=== PATIENT | male | born 1995 | race Caucasian/White ===

== ENCOUNTER 2018-09-17 10:19 | Emergency (ER) | payer OTHER ==
[~2018-09-17] VITALS: Ht 182.9 cm; Wt 84.1 kg
[2018-09-17] MEDS ORDERED: ONDANSETRON 4 MG TAB (S0181) PO ONE (10:45)
[2018-09-17] MEDS ORDERED: ONDANSETRON 4 MG ORAL DISINTEGRATING TAB (Q0162 PER 1MG) PO ONE (11:15)
[2018-09-17] MEDS ORDERED: METOCLOPRAMIDE INJ 10MG/2ML VIAL (J2765) IV ONE (11:30)
[2018-09-17] MEDS ORDERED: NS 1,000 ML IV ONE ×2 (11:30→18:15)
[2018-09-17] MEDS ORDERED: KETOROLAC 30 MG/ML VIAL (J1885) IV ONE ×2 (11:30→15:30)
[2018-09-17 11:46] LABS: BASO # 0.1 10^3/uL (0.0-0.2); BASO % 0.5 % (0.0-1.0); EOS % 0.1 % (0.0-3.0); HEMATOCRIT 47.1 % (42.0-52.0); HEMOGLOBIN 16.3 g/dl (13.5-17.5); LYMPH # 2.8 10^3/uL (1.5-6.5); LYMPH % 17.2 % (24.0-44.0); MEAN CORPUSCULAR HEMOGLOBIN 28.7 pg (27.0-33.0); MEAN CORPUSCULAR HGB CONC 34.6 g/dl (32.0-36.5); MEAN CORPUSCULAR VOLUME 82.9 fl (80.0-96.0); MONO # 1.4 10^3/uL (0.0-0.8); MONO % 8.7 % (0.0-5.0); PLATELET COUNT, AUTOMATED 339 10^3/uL (150-450); RED BLOOD COUNT 5.68 10^6/uL (4.30-6.10); WHITE BLOOD COUNT 16.5 10^3/uL (4.0-10.0)
[2018-09-17 12:00] LABS: ALBUMIN 4.6 GM/DL (3.2-5.2); ALT/SGPT 44 U/L (12-78); AMYLASE 96 U/L (25-115); BILIRUBIN,DIRECT 0.3 MG/DL (0.0-0.2); BILIRUBIN,TOTAL 1.4 MG/DL (0.2-1.0); BLOOD UREA NITROGEN 17 MG/DL (7-18); CALCIUM LEVEL 9.5 MG/DL (8.5-10.1); CARBON DIOXIDE LEVEL 22 MEQ/L (21-32); CHLORIDE LEVEL 103 MEQ/L (98-107); CREATININE FOR GFR 1.44 MG/DL (0.70-1.30); GLOMERULAR FILTRATION RATE > 60.0 (>60); GLUCOSE, FASTING 110 MG/DL (70-100); LIPASE 248 U/L (73-393); POTASSIUM SERUM 3.8 MEQ/L (3.5-5.1); SODIUM LEVEL 139 MEQ/L (136-145); TOTAL PROTEIN 8.1 GM/DL (6.4-8.2)
[2018-09-17] MEDS ORDERED: ISOVUE-370 76% 100ML VIAL (Q9967) As Ordered ONE ×2 (13:14→14:49)
[2018-09-17] MEDS: NS 1,000 ML IV SCH (13:15)
[2018-09-17 13:22] LABS: MONO SCRN NEGATIVE (NEGATIVE)
[2018-09-17] MEDS: GASTROGRAFIN SOLUTION 30ML (Q9963) PO SCH ×2 (13:33→13:35)
[2018-09-17 13:54] LABS: INFLUENZA A AMPLIFICATION NEGATIVE (NEGATIVE); INFLUENZA B AMPLIFICATION NEGATIVE (NEGATIVE)
[2018-09-17] MEDS ORDERED: ONDANSETRON 4MG/2ML VIAL (J2405) IV ONE (15:30)
[2018-09-17] MEDS ORDERED: GI COCKTAIL 50ML BTL(HYOSCYAMINE/MAALOX/LIDOCAINE VISCOUS)(1:3:1) PO ONE ×2 (18:15→20:00)
[2018-09-17] MEDS ORDERED: ZOFR8TAB24 PO (19:49)
[2018-09-17 20:11] VITALS: BP 115/56
--- NOTE | 2018-09-18 07:27 | REP ---
CT ABDOMEN AND PELVIS WITH CONTRAST: HISTORY: Mid abdominal pain. CONTRAST: Isovue 370, 100 mL. A 4 mm cyst is present in the right lobe of the liver. The gallbladder, pancreas, spleen, adrenal glands, and kidneys are normal in appearance. There is no mass, adenopathy, or free fluid. A small amount of hyperdense material is present in the stomach. The visualized lungs are clear. The prostate gland and urinary bladder are normal in appearance. There is no fracture or subluxation. IMPRESSION: 4 mm liver cyst. Electronically Signed by Ashish Ibrahim MD 09/18/2018 07:58 A
[2018-09-18] MEDS ORDERED: ONDA8TAB7 PO (19:10)
== END 2018-09-17 20:20 | disposition home or self-care (01) ==
LOC: M ED 10:19 → M ED INP 19:24 → UNDOADMOB 19:24
DX: K52.9 Noninfective gastroenteritis and colitis, unspecified (principal); R11.2 Nausea with vomiting, unspecified; R10.84 Generalized abdominal pain; K76.89 Other specified diseases of liver
CPT/HCPCS: 74177; 80048; 80076; 81001; 82150; 83605; 83690; 85025; 86308; 87502; 87880; 96374; 96375; 96376; 99284; J1885; J2405; J2765; Q0162; Q9963; Q9967

== ENCOUNTER 2018-09-18 12:59 | Inpatient (IN) | payer OTHER ==
[~2018-09-18] VITALS: Ht 182.9 cm; Wt 82.8 kg
[~2018-09-18 12:59] MED LIST: ZOFR8TAB24 PO
[2018-09-18] MEDS ORDERED: PROMETHAZINE INJ 25 MG/ML VIAL (J2550) IV ONE ×2 (14:30→19:00)
[2018-09-18] MEDS ORDERED: KETOROLAC 30 MG/ML VIAL (J1885) IV ONE (14:30)
[2018-09-18] MEDS ORDERED: NS 1,000 ML IV ONE (14:30)
[2018-09-18 14:52] LABS: BASO # 0.1 10^3/uL (0.0-0.2); BASO % 0.9 % (0.0-1.0); HEMOGLOBIN 14.9 g/dl (13.5-17.5); LYMPH # 1.3 10^3/uL (1.5-6.5); LYMPH % 13.1 % (24.0-44.0); MEAN CORPUSCULAR HEMOGLOBIN 28.4 pg (27.0-33.0); MEAN CORPUSCULAR HGB CONC 33.9 g/dl (32.0-36.5); MONO # 0.6 10^3/uL (0.0-0.8); MONO % 5.5 % (0.0-5.0); NEUTROPHILS # 8.2 10^3/uL (1.8-7.7); NEUTROPHILS % 80.2 % (36.0-66.0); PLATELET COUNT, AUTOMATED 264 10^3/uL (150-450); RED BLOOD COUNT 5.24 10^6/uL (4.30-6.10); WHITE BLOOD COUNT 10.2 10^3/uL (4.0-10.0)
[2018-09-18 15:24] LABS: ALBUMIN 4.3 GM/DL (3.2-5.2); ALT/SGPT 39 U/L (12-78); BILIRUBIN,DIRECT 0.3 MG/DL (0.0-0.2); BILIRUBIN,TOTAL 1.3 MG/DL (0.2-1.0); BLOOD UREA NITROGEN 12 MG/DL (7-18); CALCIUM LEVEL 8.9 MG/DL (8.5-10.1); CARBON DIOXIDE LEVEL 20 MEQ/L (21-32); CHLORIDE LEVEL 105 MEQ/L (98-107); CREATININE FOR GFR 1.31 MG/DL (0.70-1.30); GLOMERULAR FILTRATION RATE > 60.0 (>60); GLUCOSE, FASTING 92 MG/DL (70-100); LIPASE 119 U/L (73-393); POTASSIUM SERUM 3.9 MEQ/L (3.5-5.1); SODIUM LEVEL 140 MEQ/L (136-145); TOTAL PROTEIN 7.2 GM/DL (6.4-8.2)
[2018-09-18] MEDS: GASTROGRAFIN SOLUTION 30ML PO SCH ×2 (15:27→15:59)
[2018-09-18] MEDS ORDERED: ISOVUE-370 76% 100ML VIAL (Q9967) As Ordered ONE (17:03)
[2018-09-18] MEDS ORDERED: NS 1,000 ML IV SCH (18:51)
[2018-09-18] MEDS ORDERED: ONDA8TAB7 PO (19:10)
[2018-09-18] MEDS ORDERED: ACETAMINOPHEN TAB 650MG DOSE (2X325MG) PO ONE (19:15)
[2018-09-18] MEDS ORDERED: KCL 20MEQ IN 0.45NS 1000ML 1,000 ML IV SCH (20:00)
--- NOTE | 2018-09-18 21:35 | HPE ---
DATE OF ADMISSION: 09/18/2018 ATTENDING PHYSICIAN: Tyler palacio PRIMARY CARE PROVIDER: [facility] HISTORY: Khoa Perez is a 23-year-old from [place] who was admitted with intractable vomiting. He has been having vomiting and diarrhea all day. Unable to retain oral fluids in the emergency room, and they felt he needed to be admitted. He is being put on observation bed. Currently he had the same thing happen 5 years ago. He was admitted to observation bed overnight. Did not require any other interventions. In the emergency room he has had CT of abdomen and pelvis, which was apparently done yesterday as well, and it shows no change from yesterday's. Essentially normal. He has a [address] His [address] abdomen and pelvis has been twice now in 2 days. His lab work showed no elevation of lipase or amylase. Probably Gilbert's syndrome with a mildly elevated bilirubin and absence of any other liver function abnormalities. Urinalysis showed ketones. White count was 60,000 yesterday. It is down to 10 now. He had a streptococcus screen done yesterday that was negative. He has not had a gastrointestinal (GI) panel done yet. PAST MEDICAL HISTORY: Benign. I do not have any dictations back yet, but it looks like he was actually put on an observation status last night. Do not know what became of that. There is no discharge order. SOCIAL HISTORY: Nonsmoker. Denies alcohol. Denies marijuana use. MEDICATIONS: None. ALLERGIES: None. REVIEW OF SYSTEMS: No hematemesis, rectal bleeding, trouble swallowing. PHYSICAL EXAMINATION: 123/58, pulse 60, respirations 18, 97% oxygen saturation. GENERAL APPEARANCE: He is vomiting repetitive with dry heaves. Vomitus is quite scant. Pupils equal, round, reactive to light. Tympanic membranes (TMs) normal. Dry mucous membranes. Pharynx benign. NECK: No masses. LUNGS: Clear. HEART: Without murmur. ABDOMEN: Soft diffusely, mildly tender. No guarding, rebound, or referred pain. No costovertebral angle (CVA) tenderness. No peripheral edema. LABORATORY DATA: White count 10.2, hemoglobin 14.9, platelets are unremarkable. Sodium 140, potassium 3.9, BUN 12, creatinine 1.3. Bilirubin 1.3. Liver functions normal. Lipase normal. IMPRESSION: Intractable nausea, vomiting, and history of diarrhea. PLAN: Suspect viral etiology. He will be admitted for observation. Will hydrate him with IV fluids, check the GI panel. Antiemetics have been ordered. Hopefully he will be stable enough for discharge tomorrow.
[2018-09-18] MEDS: ONDANSETRON 4MG/2ML VIAL (J2405) IV PRN (22:52)
[2018-09-18] MEDS ORDERED: CALCIUM CARBONATE 500 MG CHEW U/D PO ONE (23:00)
[2018-09-18 23:04] VITALS: BP 165/91
[2018-09-18] MEDS ORDERED: IBUPROFEN 400 MG TAB PO PRN (23:15)
[2018-09-19] VITALS: BP 140/60
[2018-09-19] MEDS: KCL 20MEQ IN 0.45NS 1000ML 1,000 ML IV SCH ×2 (00:59→07:18)
[2018-09-19] MEDS: GI COCKTAIL 50ML BTL(HYOSCYAMINE/MAALOX/LIDOCAINE VISCOUS)(1:3:1) PO PRN ×2 (00:59→10:14)
[2018-09-19] MEDS: ONDANSETRON 4MG/2ML VIAL (J2405) IV PRN (07:15)
[2018-09-19 07:24] LABS: HEMATOCRIT 41.9 % (42.0-52.0); HEMOGLOBIN 14.2 g/dl (13.5-17.5); MEAN CORPUSCULAR HEMOGLOBIN 28.6 pg (27.0-33.0); MEAN CORPUSCULAR HGB CONC 33.9 g/dl (32.0-36.5); MEAN CORPUSCULAR VOLUME 84.5 fl (80.0-96.0); PLATELET COUNT, AUTOMATED 236 10^3/uL (150-450); RED BLOOD COUNT 4.96 10^6/uL (4.30-6.10); WHITE BLOOD COUNT 14.9 10^3/uL (4.0-10.0)
--- NOTE | 2018-09-19 07:25 | REP ---
REASON: Generalized abdominal pain and vomiting. COMPARISON: 09/17/2018 which was normal with exception of a small hepatic cyst. CONTRAST: 100 mL of Isovue 370. The lung bases are clear and unchanged. Minimal subsegmental atelectatic change is seen. The liver, gallbladder, spleen, pancreas, adrenal glands, and kidneys are essentially unchanged and again seen to be within normal limits. There is an incidental tiny focal filling defect in the posterior segment of the right lobe of the liver most consistent with a tiny hepatic cyst. There is vicarious excretion of the contrast material by the gallbladder causing a layering effect. This is within normal limits. There is no free fluid or free air. The bowel loops and mesenteries are within normal limits. CT PELVIS: The bowel loops and their mesenteries are within normal limits and essentially unchanged. There is no mass or adenopathy. There is no free fluid or free air. Bone window technique throughout the examination shows the osseous structures to be stable and intact. IMPRESSION: No significant change from the prior exam. No evidence of acute intra-abdominal or intrapelvic disease. Electronically Signed by Mehrdad Jimenez DO 09/19/2018 04:29 P
[2018-09-19 08:01] LABS: ALBUMIN 3.6 GM/DL (3.2-5.2); ALT/SGPT 36 U/L (12-78); BLOOD UREA NITROGEN 10 MG/DL (7-18); CALCIUM LEVEL 8.7 MG/DL (8.5-10.1); CARBON DIOXIDE LEVEL 26 MEQ/L (21-32); CHLORIDE LEVEL 105 MEQ/L (98-107); CREATININE FOR GFR 1.11 MG/DL (0.70-1.30); GLOMERULAR FILTRATION RATE > 60.0 (>60); GLUCOSE, FASTING 90 MG/DL (70-100); POTASSIUM SERUM 4.2 MEQ/L (3.5-5.1); SODIUM LEVEL 138 MEQ/L (136-145); TOTAL PROTEIN 6.6 GM/DL (6.4-8.2)
[2018-09-19 08:30] VITALS: BP 143/96
[2018-09-19] MEDS: NS 1,000 ML IV SCH ×2 (09:02→22:40)
[2018-09-19] MEDS: PANTOPRAZOLE 40MG INJ (PROTONIX) (C9113) IV SCH ×2 (09:02→22:40)
[2018-09-19 10:39] LABS: LIPASE 73 U/L (73-393)
--- NOTE | 2018-09-19 13:47 | IPNPDOC ---
Date Seen The patient was seen on 09/19/18. Progress Note SUBJECTIVE: Patient was seen and examined this morning. He continues to have persistent nausea and vomiting and has remained NPO. He has been receiving Zofran. He states that he continues to have abdominal pain with his nausea vomiting. The patient has been febrile overnight. He denies diarrhea or constipation. OBJECTIVE PHYSICAL EXAMINATION: VITAL SIGNS: Please see below. GENERAL: Awake alert and oriented. He is in no acute distress although he is ill appearing. HEENT: Atraumatic, normocephalic. Eyes are nonicteric. Trachea is midline. Mucous membranes are dry CARDIOVASCULAR: Normal S1, S2. Regular rate and rhythm. No clicks, rubs, or murmurs RESPIRATORY: Clear vesicular lung sounds bilaterally. No wheezes, rhonci, or rales ABDOMINAL: Soft, nondistended. Slight tenderness to palpation of RLQ and LLQ. No rebound tenderness or guarding EXTREMITIES: No edema. Full and equal pulses in upper and lower extremities bilaterally NEUROLOGICAL: No focal neurological deficits noted on examination PSYCHOLOGICAL: Mood and affect appear appropriate LABORATORY DATA, IMAGING STUDIES, MICROBIOLOGY: Please see below. ASSESSMENT AND PLAN: Patient is a 23 year old male who presented to the [facility] ER for a 4 day complaint of abdominal pain with intractable vomiting. The patient has received a CT abdomen as an outpatient and in the ER which has been negative for any acute pathology. He has received laboratory studies demonstrating a leukocytosis. Patient has been receiving Zofran for nausea vomiting and a GI cocktail PROBLEMS: 1. Intractable Nause vomiting 2/2 acute gastritis -Patient currently complains of abdominal pain accompanied by nausea and vomiting. He denies any diarrhea. He has been febrile -Will continue with IV hydration -Monitor electrolytes and replace PRN -GI panel pending -Blood cultures pending -Continue Zofran 8 mg Q4HP, Protonix 40 mg BID, GI cocktail Q6HP, Reglan 10mg Q6HP 2. Leukocytosis -Likely 2/2 acute gastritis. Will continue to monitor I saw and evaluated the patient. I agree with the findings and plan of care as documented in the resident's note A-FIB/CHADSVASC A-FIB History Current/History of A-Fib/PAF?: No VS, I&O, 24H, Fishbone Vital Signs/I&O Vital Signs Date Time Temp Pulse Resp B/P (MAP) Pulse Ox O2 Delivery O2 Flow Rate FiO2 09/19/18 08:30 99.6 62 16 143/96 (112) 99 09/18/18 13:00 Room Air I&O- Last 24 Hours up to 6 AM 09/19/18 05:59 Intake Total 1400 ml Balance 1400 ml Laboratory Data 24H LABS Laboratory Tests 2 09/18/18 14:45: Immature Granulocyte % (Auto) 0.3, White Blood Count 10.2H, Red Blood Count 5.24, Hemoglobin 14.9, Hematocrit 44.0, Mean Corpuscular Volume 84.0, Mean Corpuscular Hemoglobin 28.4, Mean Corpuscular Hemoglobin Concent 33.9, Red Cell Distribution Width 13.2, Platelet Count 264, Neutrophils (%) (Auto) 80.2H, Lymphocytes (%) (Auto) 13.1L, Monocytes (%) (Auto) 5.5H, Eosinophils (%) (Auto) 0.0, Basophils (%) (Auto) 0.9, Neutrophils # (Auto) 8.2H, Lymphocytes # (Auto) 1.3L, Monocytes # (Auto) 0.6, Eosinophils # (Auto) 0.0, Basophils # (Auto) 0.1, Nucleated Red Blood Cells % (auto) 0.0, Anion Gap 15, Glomerular Filtration Rate > 60.0, Calcium Level 8.9, Aspartate Amino Transf (AST/SGOT) 21, Alanine Aminotransferase (ALT/SGPT) 39, Alkaline Phosphatase 28L, Total Bilirubin 1.3H, Direct Bilirubin 0.3H, Total Protein 7.2, Albumin 4.3, Albumin/Globulin Ratio 1.48, Lipase 119 09/19/18 07:01: Nucleated Red Blood Cells % (auto) 0.0, Anion Gap 7L, Glomerular Filtration Rate > 60.0, Calcium Level 8.7, Aspartate Amino Transf (AST/SGOT) 15, Alanine Aminotr ansferase (ALT/SGPT) 36, Alkaline Phosphatase 28L, Total Bilirubin 1.0, Total Protein 6.6, Albumin 3.6, Albumin/Globulin Ratio 1.20, Lipase 73, Blood Urea Nitrogen 10, Creatinine 1.11, Sodium Level 138, Potassium Level 4.2, Chloride Level 105, Carbon Dioxide Level 26 CBC/BMP Laboratory Tests 09/18/18 14:45 Red Blood Count 5.24, Mean Corpuscular Volume 84.0, Mean Corpuscular Hemoglobin 28.4, Mean Corpuscular Hemoglobin Concent 33.9, Red Cell Distribution Width 13.2, Neutrophils (%) (Auto) 80.2 H, Lymphocytes (%) (Auto) 13.1 L, Monocytes (%) (Auto) 5.5 H, Eosinophils (%) (Auto) 0.0, Basophils (%) (Auto) 0.9, Neutrophils # (Auto) 8.2 H, Lymphocytes # (Auto) 1.3 L, Monocytes # (Auto) 0.6, Eosinophils # (Auto) 0.0, Basophils # (Auto) 0.1 09/19/18 07:01 Red Blood Count 4.96, Mean Corpuscular Volume 84.5, Mean Corpuscular Hemoglobin 28.6, Mean Corpuscular Hemoglobin Concent 33.9, Red Cell Distribution Width 13.3, Calcium Level 8.7, Aspartate Amino Transf (AST/SGOT) 15, Alanine Aminotransferase (ALT/SGPT) 36, Alkaline Phosphatase 28 L, Total Bilirubin 1.0, Total Protein 6.6, Albumin 3.6 Microbiology Microbiology 09/19/18 Blood Culture, Received Pending 09/19/18 Blood Culture, Received Pending 09/19/18 Gastrointestinal Tract Panel (PCR), Received Pending RE LOUIS DO Sep 19, 2018 13:47 SKY JOSHI MD September 23, 2018 16:09
[2018-09-19 16:15] VITALS: BP 117/64
[2018-09-19] MEDS: METOCLOPRAMIDE INJ 10MG/2ML VIAL (J2765) IV PRN (16:42)
[2018-09-20] VITALS: BP 135/62
[2018-09-20 08:00] VITALS: BP 120/56
[2018-09-20] MEDS: PANTOPRAZOLE 40MG INJ (PROTONIX) (C9113) IV SCH ×2 (08:41→21:45)
[2018-09-20 08:48] LABS: HEMATOCRIT 42.2 % (42.0-52.0); HEMOGLOBIN 13.7 g/dl (13.5-17.5); MEAN CORPUSCULAR HEMOGLOBIN 28.1 pg (27.0-33.0); MEAN CORPUSCULAR HGB CONC 32.5 g/dl (32.0-36.5); MEAN CORPUSCULAR VOLUME 86.7 fl (80.0-96.0); PLATELET COUNT, AUTOMATED 202 10^3/uL (150-450); RED BLOOD COUNT 4.87 10^6/uL (4.30-6.10)
[2018-09-20 09:22] LABS: ALBUMIN 3.3 GM/DL (3.2-5.2); ALT/SGPT 29 U/L (12-78); BILIRUBIN,TOTAL 0.8 MG/DL (0.2-1.0); BLOOD UREA NITROGEN 10 MG/DL (7-18); CALCIUM LEVEL 8.3 MG/DL (8.5-10.1); CARBON DIOXIDE LEVEL 28 MEQ/L (21-32); CHLORIDE LEVEL 107 MEQ/L (98-107); CREATININE FOR GFR 1.33 MG/DL (0.70-1.30); GLOMERULAR FILTRATION RATE > 60.0 (>60); GLUCOSE, FASTING 99 MG/DL (70-100); POTASSIUM SERUM 3.7 MEQ/L (3.5-5.1); SODIUM LEVEL 140 MEQ/L (136-145); TOTAL PROTEIN 5.9 GM/DL (6.4-8.2)
[2018-09-20] MEDS: NS 1,000 ML IV SCH ×2 (10:21→22:48)
[2018-09-20] MEDS: ONDANSETRON 4MG/2ML VIAL (J2405) IV PRN ×4 (10:21→22:48)
--- NOTE | 2018-09-20 11:04 | IPNPDOC ---
Date Seen The patient was seen on 09/20/18. Progress Note SUBJECTIVE: Patient was seen and examined this morning. He currently states that he is feeling better compared to yesterday. He still admits to some continued abdominal discomfort. He denies any more vomiting however, does have some nausea. His diet was advanced to clear liquids overnight night. He seems to have tolerated this well. He states that he has had a bowel movement. No adverse events were reported overnight OBJECTIVE PHYSICAL EXAMINATION: VITAL SIGNS: Please see below. GENERAL: Awake, alert, and oriented. Appears in no acute distress. Laying in bed comfortably. HEENT: Atraumatic normocephalic. Eyes are nonicteric. Trachea is midline. Mucous membranes are pink and moist CARDIOVASCULAR: Normal S1, S2. Regular rate and rhythm. No clicks rubs or murmurs noted on examination. RESPIRATORY: Clear vesicular lung sounds bilaterally with good respiratory effort. No wheezes, rhonci, or rales. ABDOMINAL: Soft, nondistended. Nontender to palpation of all 4 quadrants. No rebound tenderness or guarding. Positive bowel sounds throughout EXTREMITIES: No edema. Full and equal pulses in bilateral upper and lower extremities NEUROLOGICAL: No focal neurological deficits noted on examination PSYCHOLOGICAL: Mood and affect appear appropriate for situation LABORATORY DATA, IMAGING STUDIES, MICROBIOLOGY: Please see below. ASSESSMENT AND PLAN: Patient is a 23 year old male who presented to the [facility] ER for a 4 day complaint of abdominal pain with intractable vomiting. The patient h as received a CT abdomen as an outpatient and in the ER which has been negative for any acute pathology. He has received laboratory studies demonstrating a leukocytosis. Patient has been receiving Zofran for nausea vomiting and a GI cocktail PROBLEMS: 1. Intractable Nause vomiting 2/2 acute gastritis -Abdominal pain, nausea, and vomiting is resolving. Patient has been advanced to a full liquids diet. He has been tolerating well. If he continues to tolerate clear liquids then will advance as tolerated to a BRAT diet -Will continue with IV hydration. Will D/C once patient is fully tolerating PO -Monitor electrolytes and replace PRN -GI panel was negative -Blood cultures negative -Continue Zofran 8 mg Q4HP, Protonix 40 mg BID, GI cocktail Q6HP, Reglan 10mg Q6HP -Patient will likely benefit from PO protonix for 6 weeks on D/C with follow-up with PCP 2. Leukocytosis -Likely 2/2 acute gastritis. -Has resolved A-FIB/CHADSVASC A-FIB History Current/History of A-Fib/PAF?: No VS, I&O, 24H, Fishbone Vital Signs/I&O Vital Signs Date Time Temp Pulse Resp B/P (MAP) Pulse Ox O2 Delivery O2 Flow Rate FiO2 09/20/18 08:00 98.7 58 18 120/56 (77) 98 09/18/18 13:00 Room Air I&O- Last 24 Hours up to 6 AM 09/20/18 06:00 Intake Total 1375 ml Output Total 1090 ml Balance 285 ml Laboratory Data 24H LABS Laboratory Tests 2 09/20/18 08:11: Nucleated Red Blood Cells % (auto) 0.0, Anion Gap 5L, Glomerular Filtration Rate > 60.0, Blood Urea Nitrogen 10, Creatinine 1.33H, Sodium Level 140, Potassium Level 3.7, Chloride Level 107, Carbon Dioxide Level 28, Calcium Level 8.3L, As partate Amino Transf (AST/SGOT) 11, Alanine Aminotransferase (ALT/SGPT) 29, Alkaline Phosphatase 26L, Total Bilirubin 0.8, Total Protein 5.9L, Albumin 3.3, Albumin/Globulin Ratio 1.27 CBC/BMP Laboratory Tests 09/20/18 08:11 Red Blood Count 4.87, Mean Corpuscular Volume 86.7, Mean Corpuscular Hemoglobin 28.1, Mean Corpuscular Hemoglobin Concent 32.5, Red Cell Distribution Width 13.2, Calcium Level 8.3 L, Aspartate Amino Transf (AST/SGOT) 11, Alanine Aminotransferase (ALT/SGPT) 29, Alkaline Phosphatase 26 L, Total Bilirubin 0.8, Total Protein 5.9 L, Albumin 3.3 Microbiology Microbiology 09/19/18 Blood Culture - Preliminary, Resulted No growth after 24 hours . All specim... 09/19/18 Blood Culture - Preliminary, Resulted No growth after 24 hours . All specim... 09/19/18 Gastrointestinal Tract Panel (PCR) - Final, Complete GME ATTESTATION GME ATTESTATION My faculty preceptor for this patient encounter was physically present during the encounter and was fully available. All aspects of the patient interview, examination, medical decision making process, and medical care plan development were reviewed and approved by the faculty preceptor. The faculty preceptor is aware and concurs with the plan as stated in the body of this note and will attest to such by his/her cosignature. ATTENDING NOTE I saw and evaluated the patient. I agree with the findings and plan of care as documented in the resident's note RE LOUIS DO September 20, 2018 11:04 SKY JOSHI MD September 23, 2018 16:10
[2018-09-20] MEDS: METOCLOPRAMIDE INJ 10MG/2ML VIAL (J2765) IV PRN ×2 (11:20→17:26)
[2018-09-20] MEDS: GI COCKTAIL 50ML BTL(HYOSCYAMINE/MAALOX/LIDOCAINE VISCOUS)(1:3:1) PO PRN (11:20)
[2018-09-20 16:00] VITALS: BP 133/96
[2018-09-20 20:00] VITALS: BP 152/87
[2018-09-21] VITALS (9 sets, daily range): BP systolic 122–139; BP diastolic 58–67
[2018-09-21 06:56] LABS: HEMATOCRIT 41.5 % (42.0-52.0); HEMOGLOBIN 14.1 g/dl (13.5-17.5); MEAN CORPUSCULAR HEMOGLOBIN 28.7 pg (27.0-33.0); MEAN CORPUSCULAR VOLUME 84.3 fl (80.0-96.0); PLATELET COUNT, AUTOMATED 230 10^3/uL (150-450); RED BLOOD COUNT 4.92 10^6/uL (4.30-6.10); WHITE BLOOD COUNT 11.8 10^3/uL (4.0-10.0)
[2018-09-21 07:24] LABS: ALBUMIN 3.5 GM/DL (3.2-5.2); ALT/SGPT 30 U/L (12-78); BILIRUBIN,TOTAL 0.9 MG/DL (0.2-1.0); BLOOD UREA NITROGEN 10 MG/DL (7-18); CALCIUM LEVEL 8.4 MG/DL (8.5-10.1); CARBON DIOXIDE LEVEL 27 MEQ/L (21-32); CHLORIDE LEVEL 106 MEQ/L (98-107); CREATININE FOR GFR 1.34 MG/DL (0.70-1.30); GLOMERULAR FILTRATION RATE > 60.0 (>60); GLUCOSE, FASTING 85 MG/DL (70-100); POTASSIUM SERUM 3.7 MEQ/L (3.5-5.1); SODIUM LEVEL 140 MEQ/L (136-145); TOTAL PROTEIN 6.1 GM/DL (6.4-8.2)
[2018-09-21] MEDS: PANTOPRAZOLE 40MG INJ (PROTONIX) (C9113) IV SCH ×2 (08:39→21:29)
--- NOTE | 2018-09-21 09:32 | CR ---
DATE OF CONSULTATION: 09/20/2018 23-year white male admitted to [facility] from [place] for apparent intractable bouts of nausea, vomiting and diarrhea for approximately 1-2 days. The patient has been unable to maintain liquids. He has had a previous bout of this approximately 5-6 years ago, was admitted overnight, no interventions were performed at that time and nausea and vomiting resolved spontaneously. He presented to the emergency room for these symptoms and apparently abdominal CT was normal. He has Gilbert's syndrome, which causes a mild elevation in his bilirubin with normal liver functions. The patient had a white count of 10.2. The patient's urinalysis showed some ketones and a strep screen which was negative. PAST MEDICAL HISTORY: Is benign. SOCIAL HISTORY: Cigarettes, alcohol, drugs negative. MEDICATIONS: None. ALLERGIES: None. REVIEW OF SYSTEMS: Noncontributory to the above problem. PHYSICAL EXAMINATION: Generally he is a well-developed, well-nourished white male in no obvious acute distress. Appears stated age. Chest is clear to auscultation. Cardiovascular exam showed a regular rhythm. No murmurs or gallops. Normal physiological split S1 to S2. Abdomen was soft, nontender. No masses, guarding, rebound, hepatosplenomegaly and bowel sounds were positive. LABORATORY STUDIES: On previous admission to the ER on 09/17/2018 showed white count was 16,500. Hemoglobin and hematocrit was normal. The patient's chemistry on 09/17/2018 was normal except for a mild elevation of his bilirubin. Serology studies were negative for fluid and mono. Imaging studies performed on 09/17/2016 was completely normal and the patient was sent home. He then returned 24 hours later with similar symptoms and repeat abdominal CT was negative. ANALYSIS: Episodic bouts of nausea, vomiting, unknown etiology at the present time. The patient is a healthy male who has no apparent significant pathology. 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 Plan will be to perform upper endoscopy to rule out any anatomic abnormalities that might cause his vomiting. PLAN: 1. Set up upper endoscopy. 2. Maintain IV fluids.
--- NOTE | 2018-09-21 11:05 | IPNPDOC ---
Date Seen The patient was seen on 09/21/18. Progress Note SUBJECTIVE: Patient was seen and examined this morning. The patient tolerated clear liquids yesterday however when he was advanced to ice cream he was unable to tolerate and had abdominal pain with emesis. The patient is currently NPO for an EGD to be performed today. Patient denies any fevers or chills. He has remained afebrile overnight. There were no adverse events reported overnight OBJECTIVE PHYSICAL EXAMINATION: VITAL SIGNS: Please see below. GENERAL: Awake, alert and oriented. Appears in no acute distress. Lying in bed on cell phone HEENT: Atrumatic normocephalic. Eyes are nonicteric. Trachea is midline. Mucous membranes are pink and moist CARDIOVASCULAR: Normal S1, S2. Regular rate and rhythm. No clicks rubs or murmurs noted on examination RESPIRATORY: Clear vesicular breath sounds bilaterally with good respiratory effort. No wheezes, rhonci, or rales ABDOMINAL: Soft, nondistended, nontender to palpation throughout. No rebound tenderness or guarding. Positive bowel sounds throughout EXTREMITIES: No edema. Full and equal pulses in upper and lower extremities bilaterally NEUROLOGICAL: No focal neurological deficits PSYCHOLOGICAL: Mood and affect appear appropriate LABORATORY DATA, IMAGING STUDIES, MICROBIOLOGY: Please see below. ASSESSMENT AND PLAN: Patient is a 23 year old male who presented to the [facility] ER for a 4 day complaint of abdominal pain with intractable vomiting. The patient has received a CT abdomen as an outpatient and in the ER which has been negative for any acute pathology. He has received laboratory studies demonstrating a leukocytosis. Patient has been receiving Zofran for nausea vomiting and a GI cocktail PROBLEMS: 1. Intractable Nause vomiting 2/2 acute gastritis -Patient had diet advanced yesterday. He had eaten ice cream and developed abdominal pain and emesis. Patient remains afebrile. He was made NPO again and the patients nausea and abdominal pain subsided. -Gastroenterology consult has been placed. Patient will have an EGD performed to assess for anatomical causes of his vomiting -Patient will be continued on IV hydration -Blood cultures remain negative -Zofran 8mg Q4HP, Protonix 40mg BID, GI cocktail Q6HP, Reglan 10mg Q6HP 2. Leukocytosis -Likely 2/2 acute gastritis. -Has resolved A-FIB/CHADSVASC A-FIB History Current/History of A-Fib/PAF?: No VS, I&O, 24H, Nate Vital Signs/I&O Vital Signs Date Time Temp Pulse Resp B/P (MAP) Pulse Ox O2 Delivery O2 Flow Rate FiO2 09/21/18 08:00 98.3 65 18 139/63 (88) 98 09/18/18 13:00 Room Air I&O- Last 24 Hours up to 6 AM 09/21/18 06:00 Intake Total 2420 ml Output Total 850 ml Balance 1570 ml Laboratory Data 24H LABS Laboratory Tests 2 09/21/18 06:43: Nucleated Red Blood Cells % (auto) 0.0, Anion Gap 7L, Glomerular Filtration Rate > 60.0, Blood Urea Nitrogen 10, Creatinine 1.34H, Sodium Level 140, Potassium Level 3.7, Chloride Level 106, Carbon Dioxide Level 27, Calcium Level 8.4L, Aspartate Amino Transf (AST/SGOT) 16, Alanine Aminotransferase (ALT/SGPT) 30, Alkaline Phosphatase 28L, Total Bilirubin 0.9, Total Protein 6.1L, Albumin 3.5, Albumin/Globulin Ratio 1.35 CBC/BMP Laboratory Tests 09/21/18 06:43 Red Blood Count 4.92, Mean Corpuscular Volume 84.3, Mean Corpuscular Hemoglobin 28.7, Mean Corpuscular Hemoglobin Concent 34.0, Red Cell Distribution Width 13.1, Calcium Level 8.4 L, Aspartate Amino Transf (AST/SGOT) 16, Alanine Aminotransferase (ALT/SGPT) 30, Alkaline Phosphatase 28 L, Total Bilirubin 0.9, Total Protein 6.1 L, Albumin 3.5 Microbiology Microbiology 09/19/18 Blood Culture - Preliminary, Resulted No Growth after 48 hours. All Specime... 09/19/18 Blood Culture - Preliminary, Resulted No Growth after 48 hours. All Specime... 09/19/18 Gastrointestinal Tract Panel (PCR) - Final, Complete GME ATTESTATION GME ATTESTATION My faculty preceptor for this patient encounter was physically present during the encounter and was fully available. All aspects of the patient interview, examination, medical decision making process, and medical care plan development were reviewed and approved by the faculty preceptor. The faculty preceptor is aware and concurs with the plan as stated in the body of this note and will attest to such by his/her cosignature. ATTENDING NOTE I saw and evaluated the patient. I agree with the findings and plan of care as documented in the resident's note RE LOUIS DO September 21, 2018 11:05 SKY JOSHI MD September 23, 2018 16:40
[2018-09-21] MEDS: NS 1,000 ML IV SCH (11:24)
[2018-09-21] MEDS ORDERED: PROPOFOL 200 MG/20 ML VIAL As Ordered ONE ×2 (18:47→19:01)
[2018-09-21] MEDS ORDERED: LIDOCAINE 2% INJ 100 MG/5 ML SDV (FOR ANES.) As Ordered ONE (18:47)
--- NOTE | 2018-09-21 19:18 | ROOR ---
Patient Name: Khoa Perez Procedure Date: 09/21/2018 6:47 PM Date of : 1995 Age: 23 Gender: Male Note Status: Finalized Procedure: Upper Endoscopy + Biopsies Indications: Heartburn, Nausea with vomiting Providers: Miguel Iqbal MD Referring MD: 1. No Referring Physician 1. No Referring Physician, Admin. Requesting Provider: Medicines: Monitored Anesthesia Care Complications: No immediate complications. Procedure: Pre-Anesthesia Assessment: - The heart rate, respiratory rate, oxygen saturations, blood pressure, adequacy of pulmonary ventilation, and response to care were monitored throughout the procedure. The Endoscope was introduced through the mouth, and advanced to the second part of duodenum. The upper GI endoscopy was accomplished without difficulty. The patient tolerated the procedure well. Findings: The Z-line was irregular and was found 40 cm from the incisors. Mildly severe esophagitis with no bleeding was found 38 cm from the incisors. Biopsies were taken with a cold forceps for histology. A medium-sized hiatal hernia was present. Localized mildly erythematous mucosa without bleeding was found in the cardia. No other significant abnormalities were identified in a careful examination of the stomach. The exam of the duodenum was otherwise normal. Impression: - Z-line irregular, 40 cm from the incisors. - Mildly severe reflux esophagitis. Rule out Zhou's esophagus. Biopsied. - Medium-sized hiatal hernia. - Erythematous mucosa in the cardia. - The examination was otherwise normal. Recommendation: - Await pathology results. - Return patient to [facility] for ongoing care. - Use Prilosec (omeprazole) 40 mg PO BID. - Use sucralfate tablets 1 gram PO BID. - Telephone GI clinic for pathology results in 1 week. - The findings and recommendations were discussed with the patient. Miguel Iqbal MD Miguel Iqbal MD 09/21/2018 7:17:48 PM Electronically signed by Miguel Iqbal MD Number of Addenda: 0 Note Initiated On: 09/21/2018 6:47 PM Estimated Blood Loss: Estimated blood loss: none.
[2018-09-21] MEDS ORDERED: ONDANSETRON 4MG/2ML VIAL (J2405) IV PRN (19:30)
[2018-09-21] MEDS ORDERED: LR 1,000 ML IV SCH (19:30)
[2018-09-21] MEDS: SUCRALFATE 1 GM TAB PO SCH (21:29)
[2018-09-22 00:50] VITALS: BP 119/56
[2018-09-22] MEDS: NS 1,000 ML IV SCH (01:26)
[2018-09-22 04:00] VITALS: BP 140/63
[2018-09-22] MEDS: SUCRALFATE 1 GM TAB PO SCH (06:31)
[2018-09-22 07:32] LABS: HEMATOCRIT 39.8 % (42.0-52.0); HEMOGLOBIN 13.3 g/dl (13.5-17.5); MEAN CORPUSCULAR HEMOGLOBIN 28.2 pg (27.0-33.0); MEAN CORPUSCULAR HGB CONC 33.4 g/dl (32.0-36.5); MEAN CORPUSCULAR VOLUME 84.5 fl (80.0-96.0); PLATELET COUNT, AUTOMATED 204 10^3/uL (150-450); RED BLOOD COUNT 4.71 10^6/uL (4.30-6.10); WHITE BLOOD COUNT 7.1 10^3/uL (4.0-10.0)
[2018-09-22 08:00] VITALS: BP 125/59
[2018-09-22 08:01] LABS: ALBUMIN 3.1 GM/DL (3.2-5.2); ALT/SGPT 33 U/L (12-78); BILIRUBIN,TOTAL 0.9 MG/DL (0.2-1.0); BLOOD UREA NITROGEN 10 MG/DL (7-18); CARBON DIOXIDE LEVEL 26 MEQ/L (21-32); CHLORIDE LEVEL 107 MEQ/L (98-107); CREATININE FOR GFR 1.11 MG/DL (0.70-1.30); GLOMERULAR FILTRATION RATE > 60.0 (>60); GLUCOSE, FASTING 80 MG/DL (70-100); POTASSIUM SERUM 3.6 MEQ/L (3.5-5.1); SODIUM LEVEL 140 MEQ/L (136-145); TOTAL PROTEIN 5.9 GM/DL (6.4-8.2)
[2018-09-22] MEDS: PANTOPRAZOLE 40MG INJ (PROTONIX) (C9113) IV SCH (09:57)
[2018-09-22 12:00] VITALS: BP 135/63
[2018-09-22] MEDS ORDERED: SUCR1TA PO (13:50)
[2018-09-22] MEDS ORDERED: OMEP40CA2 PO (13:50)
--- NOTE | 2018-09-22 17:26 | DS.PDOC ---
Discharge Summary General Date of Admission September 21, 2018 at 10:03 Date of Discharge 09/22/18 Attending Physician: SKY JOSHI MD Specialist/Consultants Involve: Miguel Iqbal Discharge Summary PROCEDURES PERFORMED DURING STAY: Upper endoscopy with biopsies ADMITTING DIAGNOSES: 1. Intractable Nausea and vomiting DISCHARGE DIAGNOSES: 1. Intractable nausea and vomiting 2/2 acute gastritis 2. Sever Reflux Esophagitis COMPLICATIONS/CHIEF COMPLAINT: Intractable Vomiting. HISTORY OF PRESENT ILLNESS: Patient is a 23 year old male with no significant pa st medical history who presented to the [facility] ER on 09/18/2018 with complaint of intractable nausea and vomiting. Patient had stated that he was having nausea and vomiting all day. He had been unable to retain oral fluids at home or in the emergency room. The patient had stated that he had a similar illness approximately 5 years ago and was admitted. He states that the workup took approximately 9 days however, he is unsure what the results or diagnosis was if any. In the emergency room, the patient had a CT of his abdomen and pelvis which had also been done the day previously. His scan was essentially normal and only showed a 4mm liver cyst. His lab work was rather benign on presentation. The patient continued to have nausea and vomiting despite antiemetics. He was unable to tolerate oral feeds or fluids and was subsequently admitted to hospitalist service for further evaluation and management HOSPITAL COURSE: Once admitted, the patient was made NPO. He was given antiemetics and allowed for bowel rest. He was also placed on protonix and carafate. The patient received a GI panel which was negative. His blood cultures remained negative. The patient eventually began feeling better and was advanced to clears which he tolerated. He then ate icecream and developed nausea and vomiting that was again intractable. The patient was made NPO again and GI was consulted for an endoscopy to rule out anatomical causes of the patients vomiting. On endoscopy, the patient was found to have mildly severe reflux esophagitis and was biopsied to rule out Zhou's esophagus. Additionally, he was found to have a medium sized hiatal hernia, and erythematous mucosa in the cardia. The patient began to feel better and his diet was advanced to clears and then BRAT diet. He tolerated the diet well and denied any nausea or vomiting. Patient was fit for discharge and per GI was told to take Prilosec 40mg BID and Sucralfate 1 gram BID with follow-up with GI in 1 week. DISCHARGE MEDICATIONS: Please see below. ALLERGIES: Please see below. PHYSICAL EXAMINATION ON DISCHARGE: VITAL SIGNS: Please see below. GENERAL: Awake, alert and oriented. Appears in no acute distress. Lying in bed comfortably HEENT: Atrumatic normocephalic. Eyes are nonicteric. Trachea is midline. Mucous membranes are pink and moist CARDIOVASCULAR: Normal S1, S2. Regular rate and rhythm. No clicks rubs or murmurs noted on examination RESPIRATORY: Clear vesicular breath sounds bilaterally with good respiratory effort. No wheezes, rhonci, or rales ABDOMINAL: Soft, nondistended, nontender to palpation throughout. No rebound tenderness or guarding. Positive bowel sounds throughout EXTREMITIES: No edema. Full and equal pulses in upper and lower extremities bilaterally NEUROLOGICAL: No focal neurological deficits PSYCHOLOGICAL: Mood and affect appear appropriate LABORATORY DATA: Please see below. IMAGING: REASON: Generalized abdominal pain and vomiting. COMPARISON: 09/17/2018 which was normal with exception of a small hepatic cyst. CONTRAST: 100 mL of Isovue 370. The lung bases are clear and unchanged. Minimal subsegmental atelectatic change is seen. The liver, gallbladder, spleen, pancreas, adrenal glands, and kidneys are essentially unchanged and again seen to be within normal limits. There is an incidental tiny focal filling defect in the posterior segment of the right lobe of the liver most consistent with a tiny hepatic cyst. There is vicarious excretion of the contrast material by the gallbladder causing a layering effect. This is within normal limits. There is no free fluid or free air. The bowel loops and mesenteries are within normal limits. CT PELVIS: The bowel loops and their mesenteries are within normal limits and essentially unchanged. There is no mass or adenopathy. There is no free fluid or free air. Bone window technique throughout the examination shows the osseous structures to be stable and intact. IMPRESSION: No significant change from the prior exam. No evidence of acute intra-abdominal or intrapelvic disease. Electronically Signed by Mehrdad Jimenez DO 09/19/2018 04:29 P PROGNOSIS: GOOD ACTIVITY: [As tolerated]. DIET: BRAT DIET DISCHARGE PLAN: Patient is to be discharged home. He is to take Prilosec 40 mg BID and Sucralfate 1 gram BID. He is to continue on the BRAT diet. He is to call the GI clinic in 1 week for the results of his biopsy. He is to follow-up with his PCP in 2-4 weeks. He is to follow-up with GI as directed. DISPOSITION: 01 Home, Self-Care. DISCHARGE INSTRUCTIONS: 1. Continue Prilosec 40 mg BID 2. Continue Sucralfate 1 gram BID 3. Call GI clinic in 1 week for pathology results 4. F/U with PCP in 2-4 weeks 5. F/U with GI as directed pending pathology results DISCHARGE CONDITION: [Stable]. TIME SPENT ON DISCHARGE: Greater than 40 minutes. Vital Signs/I&Os Vital Signs Date Time Temp Pulse Resp B/P (MAP) Pulse Ox O2 Delivery O2 Flow Rate FiO2 09/22/18 12:00 99.0 63 18 135/63 (87) 98 09/18/18 13:00 Room Air I&O- Last 24 Hours up to 6 AM 09/22/18 06:00 Intake Total 2740 ml Output Total 850 ml Balance 1890 ml Laboratory Data Labs 24H Laboratory Tests 2 09/22/18 06:57: Nucleated Red Blood Cells % (auto) 0.0, Anion Gap 7L, Glomerular Filtration Rate > 60.0, Blood Urea Nitrogen 10, Creatinine 1.11, Sodium Level 140, Potassium Level 3.6, Chloride Level 107, Carbon Dioxide Level 26, Calcium Level 8.0L, Aspartate Amino Transf (AST/SGOT) 12, Alanine Aminotransferase (ALT/SGPT) 33, Alkaline Phosphatase 27L, Total Bilirubin 0.9, Total Protein 5.9L, Albumin 3.1L, Albumin/Globulin Ratio 1.11 CBC/BMP Laboratory Tests 09/22/18 06:57 Red Blood Count 4.71, Mean Corpuscular Volume 84.5, Mean Corpuscular Hemoglobin 28.2, Mean Corpuscular Hemoglobin Concent 33.4, Red Cell Distribution Width 13.1, Calcium Level 8.0 L, Aspartate Amino Transf (AST/SGOT) 12, Alanine Aminotransferase (ALT/SGPT) 33, Alkaline Phosphatase 27 L, Total Bilirubin 0.9, Total Protein 5.9 L, Albumin 3.1 L Microbiology Microbiology 09/19/18 Blood Culture - Preliminary, Resulted No Growth after 72 hours. All specime... 09/19/18 Blood Culture - Preliminary, Resulted No Growth after 72 hours. All specime... 09/19/18 Gastrointestinal Tract Panel (PCR) - Final, Complete Discharge Medications Scheduled Omeprazole (Omeprazole) 40 Mg Capsule.dr, 40 MG PO BID Sucralfate (Sucralfate) 1 Gm Tablet, 1 GRAM PO BID Allergies Coded Allergies: No Known Allergies (Unverified , 09/17/18) GME ATTESTATION GME ATTESTATION My faculty preceptor for this patient encounter was physically present during the encounter and was fully available. All aspects of the patient interview, examination, medical decision making process, and medical care plan development were reviewed and approved by the faculty preceptor. The faculty preceptor is aware and concurs with the plan as stated in the body of this note and will attest to such by his/her cosignature. ATTENDING NOTE I saw and evaluated the patient. I agree with the findings and plan of care as documented in the resident's note RE LOUIS DO September 22, 2018 17:26 SKY JOSHI MD September 24, 2018 16:39
== END 2018-09-22 14:30 | disposition home or self-care (01) | DRG 392 ==
LOC: M ED 12:59 → M PED 19:57 → M ED INP 19:57 → M PED 23:45 → OBSVTOIN 09-21 10:03
PROVIDERS: ADMIT Family Medicine; ATTEND Internal Medicine
PROC: 0DB38ZX Excision of Lower Esophagus, Via Natural or Artificial Opening Endoscopic, Diagnostic (ICD-10-PCS; principal; 2018-09-21 16:30)
DX: K29.00 Acute gastritis without bleeding (principal); E80.4 Gilbert syndrome; K21.0 Gastro-esophageal reflux disease with esophagitis; K44.9 Diaphragmatic hernia without obstruction or gangrene